=== PATIENT | female | born 1930 | race Caucasian/White ===

== ENCOUNTER 2017-07-16 21:56 | Emergency (ER) | payer MEDICARE, OTHER ==
[~2017-07-16 21:56] MED LIST: AMIODARONE 150 MG/3 ML VIAL ONE; DOPamine 400MG/250ML PREMIX 400 MG/250 ML BAG IV ONE; EPINEPHrine SYRINGE 1 MG/10 ML SYRINGE ONE; MAGNESIUM SULFATE PREMIX 1 GM/100 ML BAG. IV ONE; SODIUM BICARB ADULT 8.4% 50 MEQ/50 ML DISP.SYRIN. ONE
[2017-07-16 22:27] VITALS: BP 75/22
--- NOTE | 2017-07-16 23:09 | PHYS DOC ---
Adult General Chief Complaint Chief Complaint: CPR/FULL ARREST HPI HPI Patient is a 87 year old female who presents with cardiac arrest. The patient was brought to the emergency department after having [place]. EMS received a call at 5 and arrived at 0. The patient had an AED placed prior to their arrival and they report that the patient received 2 shocks from the AED and CPR on the scene. Initial rhythm strip reported by EMS showed PEA. The patient was started on IV epinephrine and continued with CPR upon arrival to the emergency department. Patient also was endotracheally intubated. EMS provided no history. Patient remains in cardiac arrest at this time. At time of arrival, the patient has been receiving CPR for 35 minutes. Review of Systems Review of Systems Unable to obtain from patient, currently unresponsive All other systems were reviewed and found to be within normal limits, except as documented in this note. Allergies Allergies No known drug allergies Physical Exam Physical Exam Constitutional: Unresponsive. [] HENT: Normocephalic, atraumatic, bilateral external ears normal, ET tube in place, no oral exudates, nose normal. [] Eyes: Pupils 5 mm, unreactive. [] Neck: Trachea midline, no stridor. [] Cardiovascular: Pulseless[] Lungs & Thorax: Rales with assisted ventilations, no spontaneous respirations[] Abdomen: Absent bowel sounds, abdomen nondistended. [] Skin: Cool, cyanotic. [] Extremities: Peripheral cyanosis, no clubbing, no deformities. [] Neurologic: Unresponsive. [] EKG EKG Initial rhythm strip: Heart rate 150, A. fib with RVR versus possible wide complex SVT EKG #1 at 2203: Heart rate 186 bpm, wide-complex SVT EKG #2 status post administration of amiodarone: Heart rate 74, atrial fibrillation, rightward axis, ST depressions in the inferior leads, left bundle branch block.[] Radiology/Procedures Radiology/Procedures Not performed[] Course & Med Decision Making Course & Med Decision Making Pertinent Labs and Imaging studies reviewed. (See chart for details) Please refer to CODE BLUE sheet for details. CPR was continued in the emergency department. The patient was found to have pulses with a heart rate of 160 after proximate 5 minutes of CPR in the emergency department. The patient's systolic blood pressure was 80. 2 attempts were made at synchronized cardioversion with 100 and 150 J with unsuccessful cardioversion. The patient was administered 150 mg of IV amiodarone. The patient underwent a rhythm change to 70 bpm and atrial fibrillation. Attempts were made to initiate dopamine therapy as bedside ultrasound performed by myself showed poor cardiac wall motion. Unfortunately the patient maintained spontaneous pulses for only 5 minutes before going back into cardiac arrest. Patient received another 25 minutes of continuous CPR where she underwent additional unsynchronized defibrillation due to V. fib. Patient received IV magnesium and additional doses of IV epinephrine in an attempt to return spontaneous circulation. The last rhythm check the patient had PEA with no spontaneous circulation. The patient's cardiac wall motion was near absent with no perfusable beats. Time of was called at 2229. The patient's son and daughter were informed of the patient's . They reported that the patient's primary physician was Dr. Franklin, general practitioner from [place], [place]. I spoke with Dr. Franklin at 2335 and informed her of the time of . She agreed to sign the patient's certificate. [place] [facility] [place]. Critical care time excluding procedures: 55 minutes Yahir Disclaimer Yahir Disclaimer This electronic medical record was generated, in whole or in part, using a voice recognition dictation system. Departure Departure Impression: Primary Impression: Cardiac arrest Disposition: 20 Condition: HA BARNEY MD Jul 16, 2017 23:09
[2017-07-17 08:12] LABS: POTASSIUM ISTAT 4.5 mmol/L (3.5-5.0)
--- NOTE | 2017-07-17 12:52 | EKG ---
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
--- NOTE | 2017-07-17 12:53 | EKG ---
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
== END 2017-07-17 00:40 | disposition expired ==
LOC: ER 21:56
DX: I46.9 Cardiac arrest, cause unspecified (principal)
CPT/HCPCS: 80047; 84484; 92950; 92960; 93005; 99291; J0171; J0282; J1265; J3475